=== PATIENT | male | born 1945 | race Caucasian/White ===

== ENCOUNTER → 2017-07-07 | Outpatient (CLI) | payer MEDICARE ==
[2015-06-07 12:25] VITALS: BP 115/85
[~2017-07-07] MED LIST: ALFU10TA23 PO; ALPR0.25 PO; AMLO2.5T2 PO; ASPI-630 PO; FLUO40CR TP; MELA5TAB PO; MULT-496 PO; OMEP20CA5 PO; SUCR1ORA5 PO
--- NOTE | 2017-07-07 11:16 | CARD ---
APPROVED REPORT EXAM: Two-dimensional and M-mode echocardiogram with Doppler and color Doppler. 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 Luskrsjp799pu/sRAP IRRVAWSE6saNt TR Peak Gr.51nrBtUTUW38mzXr LEFT VENTRICLE The left ventricle is normal size. There is mild concentric left ventricular hypertrophy. Left ventri aman systolic function is normal. The Ejection Fraction is 55-60%. There is grossly normal LV segmenta l wall motion. Technically difficult study. Transmitral Doppler flow pattern is consistent with mild LV diastolic dysfunction. RIGHT VENTRICLE The right ventricle is mildly dilated. The right ventricular systolic function is normal. ATRIA The left atrium size is normal. The right atrium size is normal. The interatrial septum is intact wit h no evidence for an atrial septal defect or patent foramen ovale as noted on 2-D or Doppler imaging. AORTIC VALVE The aortic valve is normal in structure and function. Doppler and Color Flow revealed no significant aortic regurgitation. There is no significant aortic valvular stenosis. MITRAL VALVE The mitral valve is normal in structure and function. There is no evidence of mitral valve prolapse. There is no mitral valve stenosis. Doppler and Color Flow revealed no mitral valve regurgitation note d. TRICUSPID VALVE The tricuspid valve is normal in structure. Doppler and Color Flow revealed trace tricuspid regurgita tion. There is no pulmonary hypertension. The PA pressure was estimated at 18 mmHg. There is no tricu spid valve prolapse or vegetation. There is no tricuspid valve stenosis. PULMONIC VALVE Doppler and Color Flow revealed no pulmonic valvular regurgitation. There is no pulmonic valvular hunter nosis. GREAT VESSELS The aortic root is normal in size. The ascending aorta is normal in size. The IVC is normal in size a nd collapses >50% with inspiration. PERICARDIAL EFFUSION There is no pleural effusion. There is no evidence of significant pericardial effusion. Critical Notification Critical Value: No <Conclusion> Left ventricle systolic function is normal. The Ejection Fraction is 55-60%. There is grossly normal LV segmental wall motion. Technically difficult study.
== END | disposition home or self-care (01) ==
LOC: ECHO 07:55
PROVIDERS: ATTEND Internal Medicine Cardiovascular Disease
DX: I77.810 Thoracic aortic ectasia (principal); I07.1 Rheumatic tricuspid insufficiency; I10 Essential (primary) hypertension; F17.200 Nicotine dependence, unspecified, uncomplicated
CPT/HCPCS: 93306

== ENCOUNTER → 2017-07-08 | Outpatient (CLI) | payer MEDICARE ==
[2015-06-07 12:25] VITALS: BP 115/85
[~2017-07-08] MED LIST changes: +REGADENOSON 0.4 MG/5 ML DISP.SYRIN. IV ONE
== END | disposition home or self-care (01) ==
LOC: NM 08:55
PROVIDERS: ATTEND Internal Medicine Cardiovascular Disease
DX: R06.02 Shortness of breath (principal)
CPT/HCPCS: 78452; 93017; 96374; 96375; 96376; A9500; J2785

== ENCOUNTER → 2018-03-05 | Outpatient (CLI) | payer MEDICARE ==
[2015-06-07 12:25] VITALS: BP 115/85
[~2018-03-05] MED LIST changes: +CONTRAST GIVEN MC PRN; +IOHEXOL 240 MG/ML 50ML VIAL. ONE; +IOHEXOL 240 MG/ML 50ML VIAL. PO ONE; +IOHEXOL 300 MG/ML 75 ML VIAL. IV ONE; -REGADENOSON 0.4 MG/5 ML DISP.SYRIN. IV ONE
[2018-03-05 10:48] LABS: BASO % 1 % (0-3); EOS # 0.2 x10^3/uL (0.0-0.7); EOS % 4 % (0-3); HEMATOCRIT 40.9 % (39.0-53.0); HEMOGLOBIN 14.1 g/dL (13.0-17.5); LYMPH # 1.5 x10^3/uL (1.0-4.8); LYMPH % 24 % (24-48); MEAN CORPUSCULAR HEMOGLOBIN 32 pg (25-35); MEAN CORPUSCULAR HGB CONC 34 g/dL (31-37); MEAN CORPUSCULAR VOLUME 94 fL (79-100); MONO # 0.6 x10^3/uL (0.0-1.1); MONO % 10 % (0-9); NEUT # 3.8 x10^3uL (1.8-7.7); NEUT % 62 % (31-73); PLATELET COUNT 257 x10^3/uL (140-400); RED BLOOD COUNT 4.36 x10^6/uL (4.30-5.70); RED CELL DISTRIBUTION WIDTH 13.3 % (11.5-14.5); WHITE BLOOD COUNT 6.2 x10^3/uL (4.0-11.0)
[2018-03-05 10:51] LABS: ALBUMIN 3.7 g/dL (3.4-5.0); ALBUMIN/GLOBULIN RATIO 0.9 (1.0-1.7); CALCIUM 9.3 mg/dL (8.5-10.1); CREATININE 1.5 mg/dL (0.7-1.3); POTASSIUM 4.5 mmol/L (3.5-5.1); TOTAL BILIRUBIN 0.7 mg/dL (0.2-1.0); TOTAL PROTEIN 7.8 g/dL (6.4-8.2)
--- NOTE | 2018-03-05 11:24 | RAD ---
CT ABD PELV W/ORAL IV CONTRAST Indication: LLQ PAIN WITH NAUSEA TIMES 3 DAYS
ORAL AND 60MLS OMNI 300 IV CONTRAST Exposure: One or more of the following individualized dose reduction techniques were utilized for this examination: 1. Automated exposure control 2. Adjustment of the mA and/or kV according to patient size 3. Use of iterative reconstruction technique. Comparison: Axial images from a CT abdomen are available from exam of February 22, 2015 Contrast: Intravenous contrast was given. Oral contrast was given. FINDINGS: Lower thorax: Tiny noncalcified nodule in the posterior right lower lobe, image 9, measures 2 mm. Stable since 2015. Liver: Several tiny hypodense lesions in the liver, subcentimeter, too small to characterize but would typically be benign. One of these was identified on the prior study and is stable. Spleen: Unremarkable Pancreas: Unremarkable Adrenals:No evidence of mass. Kidneys: Small hypodense lesion in the upper pole of the right kidney measures 1 cm, has increased in size since the previous exam. This measures fluid density and is most likely a cyst. Gallbladder: Surgically absent Lymph nodes: No significant enlargement Vessels: * Aorta: Nonaneurysmal * Mesenteric: Patent * Portal venous: Patent GI tract: Small hiatal hernia. No bowel obstruction. Colonic diverticulosis. Short segment wall thickening at the junction of the descending colon and sigmoid colon with mild adjacent fatty stranding. No evidence of abscess. Moderate retained stool in the colon. Note that oral contrast is in the small bowel and has not reached the colon at the time of scanning. Appendix is not clearly visualized. Reproductive organs: Prostate mildly enlarged. Urinary bladder: Undersurface is indented by the enlarged prostate. Mildly distended. Peritoneum: No evidence of pneumoperitoneum. No free fluid. Abdominal wall:Unremarkable Spine: Degenerative spondylosis Bones: No destructive process identified. IMPRESSION: 1. Diverticulosis. Findings compatible with a short segment of acute colitis, at the junction of the descending and sigmoid colon, most likely diverticulitis. Follow-up with colonoscopy or CT after acute treatment could be of benefit to exclude a underlying mass. 2. Prostatomegaly, mild. 3. Hypodense right kidney lesion likely a cyst, increased in size slightly from prior study. 4. Small subcentimeter hypodense liver lesions, too small to characterize but likely benign. 5. Tiny 2 mm right lung base pulmonary nodule, stable since 2015 exam. Electronically signed by: Garrett Vidal MD (03/05/2018 11:21 AM) [facility]
== END | disposition home or self-care (01) ==
LOC: CT 09:48
PROVIDERS: ATTEND Family Medicine
DX: K57.30 Diverticulosis of large intestine without perforation or abscess without bleeding (principal); K76.89 Other specified diseases of liver; M47.899 Other spondylosis, site unspecified; K44.9 Diaphragmatic hernia without obstruction or gangrene; N40.0 Benign prostatic hyperplasia without lower urinary tract symptoms; N32.89 Other specified disorders of bladder; K21.9 Gastro-esophageal reflux disease without esophagitis; I10 Essential (primary) hypertension; R91.1 Solitary pulmonary nodule; Z87.891 Personal history of nicotine dependence
CPT/HCPCS: 36415; 74177; 80053; 85025; Q9966; Q9967

== ENCOUNTER → 2018-08-31 | Outpatient (CLI) | payer MEDICARE ==
[2015-06-07 12:25] VITALS: BP 115/85
[~2018-08-31] MED LIST changes: -CONTRAST GIVEN MC PRN; -IOHEXOL 240 MG/ML 50ML VIAL. ONE; -IOHEXOL 240 MG/ML 50ML VIAL. PO ONE; -IOHEXOL 300 MG/ML 75 ML VIAL. IV ONE
--- NOTE | 2018-08-31 09:43 | CARD ---
MR#: [id number] Date of Study: 08/31/2018 Ordering Physician: MALIK LEO, Referring Physician: MALIK LEO Tech: Vidhi Mandujano RDCS APPROVED REPORT EXAM: Two-dimensional and M-mode echocardiogram with Doppler and color Doppler. Other Information Quality : Good INDICATION Cardiac Disease: CAD 2D DIMENSIONS RVDd2.9 (2.9-3.5cm)Left Atrium(2D)3.7 (1.6-4.0cm) IVSd0.8 (0.7-1.1cm)Aortic Root(2D)3.7 (2.0-3.7cm) LVDd5.1 (3.9-5.9cm)LVOT Diameter2.2 (1.8-2.4cm) PWd0.9 (0.7-1.1cm)LVDs3.4 (2.5-4.0cm) FS (%) 27.0 %SV76.2 ml LVEF(%)55.0 (>50%) Aortic Valve AoV Peak Bennie.130.4cm/sAoV VTI26.4cm AO Peak GR.6.8mmHgLVOT Peak Bennie.109.4cm/s LVOT VTI 22.31cmAO Mean GR.4mmHg IKER (VMAX)3.37bj4FAR (VTI)3.19cm2 Mitral Valve MV E Odunwloc84.0cm/sMV DECEL IWMR910au MV A Swhsshnc64.7cm/sE/A Ratio0.9 Tricuspid Valve TR P. Yzlfmcph777bs/sRAP ILTELQLN6ehGb TR Peak Gr.46vyJpRADN52orZe Pulmonary Vein S1 Kkmefgyf95.3cm/sD2 Pymfrklo48.3cm/s LEFT VENTRICLE The left ventricle is normal size. There is normal left ventricular wall thickness. The left ventricu lar systolic function is normal and the ejection fraction is within normal range. EF 55% There is nor mal LV segmental wall motion. Transmitral Doppler flow pattern is Grade I-abnormal relaxation pattern . RIGHT VENTRICLE The right ventricle is normal size. The right ventricular systolic function is normal. ATRIA The left atrium size is normal. The right atrium size is normal. The interatrial septum is intact wit h no evidence for an atrial septal defect or patent foramen ovale as noted on 2-D or Doppler imaging. AORTIC VALVE The aortic valve is sclerotic but opens well. Doppler and Color Flow revealed trace aortic regurgitat ion. There is no significant aortic valvular stenosis. MITRAL VALVE The mitral valve is calcified but opens well. There is no evidence of mitral valve prolapse. There is no mitral valve stenosis. Doppler and Color-flow revealed mild mitral regurgitation. TRICUSPID VALVE The tricuspid valve is normal in structure and function. Doppler and Color Flow revealed physiologica l tricuspid regurgitation. The PA pressure was estimated at 21 mmHg. There is no tricuspid valve sten osis. PULMONIC VALVE The pulmonic valve is not well visualized. Doppler and Color Flow revealed trace pulmonic valvular re gurgitation. There is no pulmonic valvular stenosis. GREAT VESSELS The aortic root is normal in size. The ascending aorta is not well seen. The IVC was not visualized. PERICARDIAL EFFUSION There is no evidence of significant pericardial effusion. Critical Notification Critical Value: No <Conclusion> The left ventricular systolic function is normal and the ejection fraction is within normal range. EF 55% There is normal LV segmental wall motion. Signed by : Felipe Rivas, Electronically Approved : 08/31/2018 09:41:54
== END | disposition home or self-care (01) ==
LOC: ECHO 08:52
PROVIDERS: ATTEND Internal Medicine Cardiovascular Disease
DX: I08.1 Rheumatic disorders of both mitral and tricuspid valves (principal); I25.10 Atherosclerotic heart disease of native coronary artery without angina pectoris; R00.8 Other abnormalities of heart beat
CPT/HCPCS: 93306

== ENCOUNTER → 2019-08-01 | Outpatient (CLI) | payer MEDICARE ==
[2015-06-07 12:25] VITALS: BP 115/85
[~2019-08-01] MED LIST changes: +IOHEXOL 240 MG/ML 50ML VIAL. ONE
[2019-08-01 16:47] LABS: BASO % 1 % (0-3); EOS # 0.2 x10^3/uL (0.0-0.7); EOS % 3 % (0-3); HEMATOCRIT 42.2 % (39.0-53.0); HEMOGLOBIN 14.3 g/dL (13.0-17.5); LYMPH # 1.6 x10^3/uL (1.0-4.8); LYMPH % 21 % (24-48); MEAN CORPUSCULAR HEMOGLOBIN 32 pg (25-35); MEAN CORPUSCULAR HGB CONC 34 g/dL (31-37); MEAN CORPUSCULAR VOLUME 96 fL (79-100); MONO # 0.6 x10^3/uL (0.0-1.1); MONO % 8 % (0-9); NEUT # 5.1 x10^3uL (1.8-7.7); NEUT % 68 % (31-73); PLATELET COUNT 300 x10^3/uL (140-400); RED BLOOD COUNT 4.41 x10^6/uL (4.30-5.70); RED CELL DISTRIBUTION WIDTH 13.4 % (11.5-14.5); WHITE BLOOD COUNT 7.5 x10^3/uL (4.0-11.0)
[2019-08-01 16:50] LABS: CALCIUM 9.2 mg/dL (8.5-10.1); CREATININE 1.7 mg/dL (0.7-1.3); GFR 39.6
[2019-08-01 16:55] LABS: ALBUMIN 3.7 g/dL (3.4-5.0); ALBUMIN/GLOBULIN RATIO 0.9 (1.0-1.7); TOTAL BILIRUBIN 0.7 mg/dL (0.2-1.0)
--- NOTE | 2019-08-01 17:34 | RAD ---
Abdominal and Pelvis CT, Without Contrast: History: Generalized abdominal pain and diarrhea for 4 days Comparison: None. Procedure: Axial images are obtained of the abdomen and pelvis, without IV or oral contrast. Oral Contrast: Yes Findings: The left colon is collapsed limiting its evaluation. There is left-sided diverticulosis and there is mild pericolonic inflammation around the distal descending colon. The prostate is moderately enlarged measuring 6.0 x 4.5 cm. The appendix is not well identified. There has been prior cholecystectomy. There is mild wall thickening of the urinary bladder. Evaluation of solid organs is limited without contrast. Liver: Normal. Spleen: Normal. Pancreas: Normal. Adrenal Glands: Normal. Kidneys: Normal. There is no free air or free fluid. There is no lymphadenopathy. Impression: 1. Mild pericolonic inflammation around the distal descending colon is subtle but suggest diverticulitis. Other forms of colitis are possible. 2. Moderately enlarged prostate. 3. Urinary bladder wall thickening likely secondary to hypertrophy. End impression PQRS Compliance Statement: One or more of the following individualized dose reduction techniques were utilized for this examination: 1. Automated exposure control 2. Adjustment of the mA and/or kV according to patient size 3. Use of iterative reconstruction technique Electronically signed by: Jasiel Cortez III, MD (08/01/2019 5:31 PM) [facility]
== END | disposition home or self-care (01) ==
LOC: CT 16:00
PROVIDERS: ATTEND Family Medicine
DX: K57.90 Diverticulosis of intestine, part unspecified, without perforation or abscess without bleeding (principal); N40.0 Benign prostatic hyperplasia without lower urinary tract symptoms; N32.89 Other specified disorders of bladder; K52.89 Other specified noninfective gastroenteritis and colitis; Z90.49 Acquired absence of other specified parts of digestive tract
CPT/HCPCS: 36415; 74176; 80053; 85025

== ENCOUNTER → 2019-09-12 | Outpatient (CLI) | payer MEDICARE ==
[2015-06-07 12:25] VITALS: BP 115/85
[~2019-09-12] MED LIST changes: -IOHEXOL 240 MG/ML 50ML VIAL. ONE
--- NOTE | 2019-09-12 11:57 | CARD ---
MR#: [id number] Date of Study: 09/12/2019 Ordering Physician: MALIK LEO, Referring Physician: MALIK LEO, Tech: Jamia Herbert GONSALO APPROVED REPORT EXAM: Two-dimensional and M-mode echocardiogram with Doppler and color Doppler. Other Information Quality : AverageHR: 80bpm Rhythm : NSR INDICATION CAD 2D DIMENSIONS RVDd3.1 (2.9-3.5cm)Left Atrium(2D)4.3 (1.6-4.0cm) IVSd1.1 (0.7-1.1cm)Aortic Root(2D)3.6 (2.0-3.7cm) LVDd5.5 (3.9-5.9cm)LVOT Diameter2.4 (1.8-2.4cm) PWd0.9 (0.7-1.1cm)LVDs3.5 (2.5-4.0cm) FS (%) 36.2 %SV95.7 ml LVEF(%)65.3 (>50%) M-Mode DIMENSIONS Left Atrium(MM)4.41 (2.5-4.0cm)Aortic Root3.83 (2.2-3.7cm) Aortic Valve AoV Peak Bennie.99.4cm/sAoV VTI21.9cm AO Peak GR.4.0mmHgLVOT Peak Bennie.80.4cm/s LVOT VTI 15.84cmAO Mean GR.2mmHg IKER (VMAX)3.18vi9GYE (VTI)3.28cm2 Mitral Valve MV E Unjcrkbw52.1cm/sMV DECEL UUCZ626rp MV A Umubafyx57.0cm/sE/A Ratio1.0 Pulmonary Valve PV Peak Xtqwjyjm70.6cm/sPV Peak Grad.3mmHg LEFT VENTRICLE The left ventricle is normal size. There is borderline to mild concentric left ventricular hypertroph y. The left ventricular systolic function is normal and the ejection fraction is within normal range. The Ejection Fraction is 55-60%. There is normal LV segmental wall motion. Transmitral Doppler flow pattern is Grade I-abnormal relaxation pattern. RIGHT VENTRICLE The right ventricle is normal size. There is normal right ventricular wall thickness. The right ventr icular systolic function is normal. ATRIA The left atrium is mildly dilated. The right atrium size is normal. The interatrial septum is intact with no evidence for an atrial septal defect or patent foramen ovale as noted on 2-D or Doppler imagi ng. AORTIC VALVE The aortic valve is normal in structure and function. The aortic valve is trileaflet. Doppler and Col or Flow revealed no significant aortic regurgitation. There is no significant aortic valvular stenosi s. MITRAL VALVE The mitral valve is thickened but opens well. There is no evidence of mitral valve prolapse. There is no mitral valve stenosis. Doppler and Color-flow revealed mild mitral regurgitation. TRICUSPID VALVE The tricuspid valve is normal in structure and function. Doppler and Color Flow revealed trace tricus pid regurgitation. There is no tricuspid valve prolapse or vegetation. There is no tricuspid valve st enosis. PULMONIC VALVE The pulmonic valve is not well visualized. GREAT VESSELS The aortic root is mildly enlarged. The ascending aorta is Mildly dilated and it measures approximate ly 3.9 cm The IVC is normal in size and collapses >50% with inspiration. PERICARDIAL EFFUSION There is no evidence of significant pericardial effusion. Critical Notification Critical Value: No <Conclusion> The left ventricular systolic function is normal and the ejection fraction is within normal range. Th e Ejection Fraction is 55-60%. There is normal LV segmental wall motion. The ascending aorta is Mildly dilated and it measures approximately 3.9 cm Signed by : Felipe Rivas, Electronically Approved : 09/12/2019 11:48:53
== END | disposition home or self-care (01) ==
LOC: ECHO 10:41
PROVIDERS: ATTEND Internal Medicine Cardiovascular Disease
DX: I34.0 Nonrheumatic mitral (valve) insufficiency (principal); I51.7 Cardiomegaly; I25.10 Atherosclerotic heart disease of native coronary artery without angina pectoris
CPT/HCPCS: 93306

== ENCOUNTER → 2019-09-13 | Outpatient (CLI) | payer MEDICARE ==
[2015-06-07 12:25] VITALS: BP 115/85
[~2019-09-13] MED LIST changes: +REGADENOSON 0.4 MG/5 ML DISP.SYRIN. IV ONE
--- NOTE | 2019-09-13 11:54 | RAD ---
MR#: [id number] Date of Study: 09/13/2019 Ordering Physician: MALIK LEO Referring Physician: DAMIR FRANCO Tech: PRABHA Murcia APPROVED REPORT Test Type: Pharmacological Stress Nurse/Tech: PRABHA Murcia Test Indications: CAD Cardiac History: HTN Medications: see EHR Medical History: see EHR Resting ECG: SR Resting Heart Rate: 63 bpm Resting Blood Pressure: 130/82mmHg Pretest Chest Pain: None Nurse/Tech Notes Consent: The procedure was explained to the patient in lay terms. Informed consent was witnessed. Caleb eout was entered into [employer]. History and Stress Test performed by PRABHA Murcia Pharm. Details Pharmacologic stress testing was performed using 0.4mg per 5ml of regadenoson given intravenously ove r 7-10 seconds. POST EXERCISE Max HR: 81 bpm Max Blood Pressure: 118/76mmHg Blood Pressure response to exercise: Normal blood pressure response during stress. Chest Pain: No. INTERPRETATION Stress EKG Conclusion: The resting EKG shows a sinus rhythm and nonspecific ST T wave changes. The stress EKG shows no significant changes from baseline. No EKG evidence of stress induced ischemia. Imaging Protocol IMAGE PROTOCOL: Rest Tc-99m/stress Tc-99m 1 day Rest: Stress: Viability: Radiopharm.Tc99m YbyvwoujnMy83x Sestamibi Lmfo23mIj 33mCi Duration 15min. 10min. Img Date 09/13/2019 09/13/2019 Inj-Img Ebsq66cal. 60min. Rest Admin Site:IV - Right AntecubitalAdministrator: PRABHA Murcia Stress Admin Site: IV - Right AntecubitalAdministrator: PRABHA Murcia STRESS DATA End Diast. Vol.100.0mlAv. Heart Rate67.0bpm LVEDV index BSA42.0mlCardiac Output2.0L/min End Syst. Vol.30.0mlCO Index BSA4.7L/min LVESV index BSA13.0mlMyocardial Fihx306.0g Eject. Nxzuhhht09.0% Stress Rates Pk. Fill Rate2.46EDV/secLVtime Pk. Fill 251.32msec Pk. Empty Rate3.85ESV/secLVtime Pk. Iihpn484.58msec 1/3 Pk. Fill0.95EDV/sec Stress Scores Regional WT0.00Summed WT0.00 Regional WM0.00Summed WM2.00 LV Perfusion The stress scans show no significant defects. The rest scans show no significant defects. Nuclear imaging shows no reversible ischemia or infarct. Wall Motion LV systolic function is normal with an EF of 70%. LV Perf. Quant 17 Seg. SSS5.00 17 Seg. SRS2.00 17 Seg. SDS3.00 Stress Defect Extent (% LAD)0.00Rest Defect Extent (% LAD)0.00Rev. Defect Extent (% LAD)0.00 Stress Defect Extent (% LCX) 27.50Rest Defect Extent (% LCX)0.00Rev. Defect Extent (% LCX)21.30 Stress Defect Extent (% RCA)8.90Rest Defect Extent (% RCA)5.60Rev. Defect Extent (% RCA)0.00 Stress Defect Extent (% JARAD)8.50Rest Defect Extent (% JARAD)4.10Rev. Defect Extent (% JARAD)3.70 Conclusion 1. No EKG evidence of stress induced ischemia. 2. Nuclear imaging shows no reversible ischemia or infarct. 3. Normal LV systolic function with an ejection fraction of 70%. 4. Low risk Lexiscan nuclear stress test. Signed by : Venkata Webber MD Electronically Approved : 09/13/2019 11:53:39
== END | disposition home or self-care (01) ==
LOC: NM 07:41
PROVIDERS: ATTEND Internal Medicine Cardiovascular Disease
DX: I25.10 Atherosclerotic heart disease of native coronary artery without angina pectoris (principal)
CPT/HCPCS: 78452; 93017; A9500

== ENCOUNTER → 2020-09-25 | Outpatient (CLI) | payer MEDICARE ==
[2015-06-07 12:25] VITALS: BP 115/85
[~2020-09-25] MED LIST changes: -REGADENOSON 0.4 MG/5 ML DISP.SYRIN. IV ONE
--- NOTE | 2020-09-25 16:13 | CARD ---
MR#: [id number] Date of Study: 09/25/2020 Ordering Physician: MALIK LEO, Referring Physician: MALIK LEO, Tech: Vidhi Mandujano RDCS APPROVED REPORT EXAM: Two-dimensional and M-mode echocardiogram with Doppler and color Doppler. Other Information Quality : Good INDICATION Cardiac Disease: CAD 2D DIMENSIONS Left Atrium(2D)3.5 (1.6-4.0cm)IVSd0.8 (0.7-1.1cm) Aortic Root(2D)3.6 (2.0-3.7cm)LVDd4.7 (3.9-5.9cm) LVOT Diameter2.3 (1.8-2.4cm)PWd0.9 (0.7-1.1cm) LVDs3.4 (2.5-4.0cm)FS (%) 29.1 % SV58.5 mlLVEF(%)55.9 (>50%) Aortic Valve AoV Peak Bennie.120.2cm/sAoV VTI25.4cm AO Peak GR.5.8mmHgLVOT Peak Bennie.99.9cm/s LVOT VTI 20.48cmAO Mean GR.3mmHg IKER (VMAX)3.58hi5XXH (VTI)3.41cm2 Mitral Valve MV E Fqxrmyss18.9cm/sMV DECEL XRAU351im MV A Sesjbpoe40.9cm/sE/A Ratio0.8 Pulmonary Vein S1 Kqhfudqo92.4cm/sD2 Xkuevude56.1cm/s LEFT VENTRICLE The left ventricle is normal size. There is normal left ventricular wall thickness. The left ventricu lar systolic function is normal and the ejection fraction is within normal range. The Ejection Fracti on is 50-55%. There is normal LV segmental wall motion. Transmitral Doppler flow pattern is Grade I-a bnormal relaxation pattern. RIGHT VENTRICLE The right ventricle is normal size. The right ventricular systolic function is normal. ATRIA The left atrium size is normal. The right atrium size is normal. The interatrial septum is intact wit h no evidence for an atrial septal defect or patent foramen ovale as noted on 2-D or Doppler imaging. AORTIC VALVE The aortic valve is calcified but opens well. Doppler and Color Flow revealed no significant aortic r egurgitation. There is no significant aortic valvular stenosis. MITRAL VALVE The mitral valve is calcified but opens well. Mitral annular calcification is mild. There is no evide nce of mitral valve prolapse. There is no mitral valve stenosis. Doppler and Color-flow revealed trac e mitral regurgitation. TRICUSPID VALVE The tricuspid valve is normal in structure and function. Doppler and Color Flow revealed no tricuspid valve regurgitation noted. There is no tricuspid valve stenosis. PULMONIC VALVE The pulmonic valve is not well visualized. Doppler and Color Flow revealed trace pulmonic valvular re gurgitation. There is no pulmonic valvular stenosis. GREAT VESSELS The aortic root is normal in size. The ascending aorta is not well seen. The IVC is normal in size an d collapses >50% with inspiration. PERICARDIAL EFFUSION There is no evidence of significant pericardial effusion. Critical Notification Critical Value: No <Conclusion> The left ventricle is normal size. The left ventricular systolic function is normal and the ejection fraction is within normal range. The Ejection Fraction is 50-55%. Doppler and Color Flow revealed no significant aortic regurgitation. There is no significant aortic valvular stenosis. Doppler and Color-flow revealed trace mitral regurgitation. Doppler and Color Flow revealed no tricuspid valve regurgitation noted. Signed by : Venkata Webber MD Electronically Approved : 09/25/2020 16:12:52
== END ==
LOC: ECHO 07:45
PROVIDERS: ATTEND Internal Medicine Cardiovascular Disease
DX: I08.0 Rheumatic disorders of both mitral and aortic valves (principal); I25.10 Atherosclerotic heart disease of native coronary artery without angina pectoris
CPT/HCPCS: 93306

== ENCOUNTER → 2020-10-30 | Outpatient (CLI) | payer MEDICARE ==
[2015-06-07 12:25] VITALS: BP 115/85
--- NOTE | 2020-10-30 16:29 | RAD ---
Examination: 1. Bilateral digital diagnostic mammogram. 2. Limited right breast ultrasound. INDICATION: 75-year-old man with left breast pain at the nipple. Recent Covid vaccine in the left arm. No palpable abnormality. COMPARISON: None. This will serve as a baseline. TECHNIQUE: Bilateral CC and MLO views were obtained with 2-D technique and reviewed with computer-aided detection. In addition, spot compression views of the right breast in the CC and MLO projections were obtained. FINDINGS: Bilateral mammogram shows breast parenchyma is almost entirely fatty replaced. The left mammogram is negative. The left nipple areolar complex is unremarkable. Incidentally noted however in the anterior lateral right breast is an oval, dense 9 mm mammographic mass with irregular margins and associated punctate microcalcifications. Targeted ultrasound identifies at the right 9:00 position 3 cm from the nipple a 10 mm parallel orientation oval hypoechoic mass with posterior acoustic shadowing and indistinct margins that could represent fat necrosis but is suspicious for malignancy. Sonographic survey of the right axilla reveals no adenopathy. IMPRESSION: 1. Negative left diagnostic mammogram. Recommend clinical management of left breast pain. 2. Suspicious incidentally identified 10 mm right breast mass at the 9:00 position 3 cm from the nipple. Recommend ultrasound-guided core needle biopsy. BI-RADS Category 4 Findings suspicious for malignancy Biopsy recommended Patient notified prior to discharge from the imaging suite by the technologist at my request and on my behalf. I also discussed this by telephone with the patient's referring provider KULDIP Bush at 4:20 PM on 10/30/2020.
== END ==
LOC: MAMMO 14:54
PROVIDERS: ATTEND Family Medicine
DX: N63.13 Unspecified lump in the right breast, lower outer quadrant (principal)
CPT/HCPCS: 76641; 77066

== ENCOUNTER → 2020-11-22 | Outpatient (CLI) | payer MEDICARE ==
[2015-06-07 12:25] VITALS: BP 115/85
[2020-11-22] MEDS: REGADENOSON 0.4 MG/5 ML DISP.SYRIN. IV ONE (11:58)
--- NOTE | 2020-11-22 16:04 | RAD ---
MR#: [id number] Date of Study: 11/22/2020 Ordering Physician: MALIK LEO, Referring Physician: DAMIR FRANCO Tech: SYLVIA Denny ARRT (R) (N) APPROVED REPORT Test Type: Pharmacological Stress Nurse/Tech: HUNTER Thompson Test Indications: CAD Cardiac History: See Electronic Medical Record Medications: See Electronic Medical Record Medical History: See Electronic Medical Record Resting ECG: SR Resting Heart Rate: 55 bpm Resting Blood Pressure: 142/82mmHg Pretest Chest Pain: None Nurse/Tech Notes SR, NO ACUTE CHANGES Consent: The procedure was explained to the patient in lay terms. Informed consent was witnessed. Caleb eout was entered into [employer]. History and Stress Test performed by SYLVIA Denny ARRT (R) (N) Pharm. Details Pharmacologic stress testing was performed using 0.4mg per 5ml of regadenoson given intravenously ove r 7-10 seconds. Stress Symptoms No chest pain or symptoms. POST EXERCISE Reason for Termination: Infusion complete Target HR: No Max HR: 77 bpm 62% of Maximum Predicted HR: 123 bpm Exercise duration: 6 min:sec, Stage Max Blood Pressure: 133/71mmHg Blood Pressure response to exercise: Normal blood pressure response during stress. Chest Pain: No. Arrhythmia: No. ST Change: No. INTERPRETATION Stress EKG Conclusion: Baseline EKG showed sinus rhythm. No ischemic changes at peak stress. No arr hythmias. Imaging Protocol IMAGE PROTOCOL: Rest Tc-99m/stress Tc-99m 1 day Rest: Stress: Viability: Radiopharm.Tc99m KzyfgmayoVs40v Sestamibi Dose10.4mCi 32mCi Img Date 11/22/2020 11/22/2020 Inj-Img Alfo05xnp. 90min. Rest Admin Site:IV - Right AntecubitalAdministrator: SYLVIA Denny ARRT (R)(N) Stress Admin Site: IV - Right AntecubitalAdministrator: SYLVIA Denny ARRT (R)(N) STRESS DATA End Diast. Vol.105.0mlAv. Heart Rate64.0bpm End Syst. Vol.37.0mlCO Index BSA4.4L/min Myocardial Qdtm512.0gEject. Pbceokyr91.0% Stress Rates Pk. Fill Rate2.18EDV/secLVtime Pk. Fill 205.82msec Pk. Empty Rate3.53ESV/secLVtime Pk. Qnxrw724.65msec 1/3 Pk. Fill1.05EDV/sec Stress Scores Regional WT1.00Summed WT11.00 Regional WM0.00Summed WM0.00 Study quality was good. Left Ventricular size was Normal at Rest and Stress. Lung uptake was . Left Ventricular ejection fraction is 61%. The rest and stress images show normal perfusion, normal contraction and thickening. LV Perf. Quant 17 Seg. SSS0.00 17 Seg. SRS0.00 17 Seg. SDS0.00 Stress Defect Extent (% LAD)0.00Rest Defect Extent (% LAD)0.00Rev. Defect Extent (% LAD)0.00 Stress Defect Extent (% LCX) 0.00Rest Defect Extent (% LCX)0.00Rev. Defect Extent (% LCX)0.00 Stress Defect Extent (% RCA)0.00Rest Defect Extent (% RCA)0.00Rev. Defect Extent (% RCA)0.00 Stress Defect Extent (% JARAD)0.00Rest Defect Extent (% JARAD)0.00Rev. Defect Extent (% JARAD)0.00 Conclusion 1. Regadenoson cardioisotope stress test did not show any evidence of ischemia or infarct. 2. Normal left ventricular systolic function with ejection fraction calculated at 61%. 3. Low risk for cardiac events. Signed by : Malik Leo, Electronically Approved : 11/22/2020 16:04:12
== END ==
LOC: NM 08:10
PROVIDERS: ATTEND Internal Medicine Cardiovascular Disease
DX: I25.10 Atherosclerotic heart disease of native coronary artery without angina pectoris (principal)
CPT/HCPCS: 78452; 93017; A9500; J2785